=== PATIENT | male | born 1990 | race Two or more races ===

== ENCOUNTER 2018-04-25 13:24 | Emergency (ER) | payer OTHER ==
[~2018-04-25] VITALS: Ht 185.4 cm; Wt 72.6 kg
[2018-04-25 13:40] VITALS: BP 128/76
--- NOTE | 2018-04-25 13:41 | NUR ---
ARRIVAL PATIENT ARRIVED TO ED6 AMBULATORY, C/O OF LEFT THUMB ABSCESS, PATIENT STATES HE HAD A SMALL LACERATION TO THE EXTREMITY AND NOW THERE IS A RAISED AREA, CAME TO THE ED FOR FURTHER EVAL.
--- NOTE | 2018-04-25 14:07 | NUR ---
I AND D DOCTOR TO ROOM, I&D DONE, PATIENT TOLERATED WELL.
[2018-04-25] MEDS ORDERED: ULTRAM ONE (14:12)
[2018-04-25] MEDS ORDERED: ULTRAM PO STA (14:13)
[2018-04-25 14:16] VITALS: BP 136/75
[2018-04-25 14:20] VITALS: BP 136/75
--- NOTE | 2018-04-25 14:20 | ER.PDOC ---
General Chief Complaint: Skin Rash/Abscess Stated Complaint: THUMB LACERATION Time seen by MD: 14:14 Source: patient Exam Limitations: no limitations History of Present Illness Initial Comments Abscess left thumb for past couple of days. Severity: moderate Quality: painful Identified Cause: no Allergies: Coded Allergies: No Known Allergies (Unverified , 04/25/18) Home Meds No Active Prescriptions or Reported Meds Past Medical History Medical History: no pertinent history Surgical History: knee Social History Smoking: cigarettes Alcohol Use: occassionally Drug Use: none Constitutional: no symptoms reported EENTM: no symptoms reported Respiratory: no symptoms reported Cardiovascular: no symptoms reported Gastrointestinal: no symptoms reported Skin: see HPI All Other Systems: Reviewed and Negative Physical Exam General Appearance: alert, no distress Skin: abscess, pointing, fluctuant Location: other (left thumd) EENT: eyes nml inspection, lips/gums nml, pharynx nml Neck: trachea midline, no swelling Respiratory: no resp. distress, breath sounds nml CVS: reg. rate & rhythm, heart sounds nml Abdomen: non-tender, no organomegaly NEURO/PSYCH: oriented x 3, CN's nml as tested, motor nml, sensation nml, mood/ affect nml Incision and Drainage Incision and Drainage : Site: lef thumb Blade Size: 11 I & D Procedure: betadine prep, irrigated cavity w/saline, culture/gram stain Departure Time of Disposition: 14:19 Disposition: 01 HOME, SELF-CARE Impression: Primary Impression: Abscess Condition: Improved Referrals: PCP,UNKNOWN (PCP) PRIMARY CARE PROVIDER Additional Instructions: Bactrim DS Ibuprofen Clean wound daily with soap and water and apply Neosporin F/U with your PCP in 2-3 days Scripts No Active Prescriptions or Reported Meds Duration or Time Spent with Pa: 45 mins LULU HERNÁNDEZ MD Apr 25, 2018 14:20
== END 2018-04-25 14:26 | disposition home or self-care (01) ==
LOC: ER 13:24
DX: L02.512 Cutaneous abscess of left hand (principal); F17.210 Nicotine dependence, cigarettes, uncomplicated; Z98.890 Other specified postprocedural states
CPT/HCPCS: 10060; 87070; 87077; 87186; 99283; 99284